=== PATIENT | male | born 1960 | race Caucasian/White ===

== ENCOUNTER → 2020-04-11 09:36 | Outpatient (CLI) | payer OTHER, SELFPAY ==
--- NOTE | 2020-04-11 09:51 | XR_ITS ---
PROCEDURE: XR SHOULDER RT MIN 2V CLINICAL INDICATION: RT SHOULDER PAIN COMPARISON: No exams were available for comparison FINDINGS: There are mild osteoarthritic changes of the acromioclavicular joint. No fracture or dislocation. No lytic or blastic change. IMPRESSION: Mild osteoarthritis of the AC joint otherwise negative Dictated by: Alvaro Mcgraw MD 04/11/2020 14:30 Electronically signed by Alvaro Mcgraw MD in [place] 04/11/2020 14:30
== END ==
PROVIDERS: PCP Family Medicine; Visit Provider Family Medicine
DX: M25.511 Pain in right shoulder (principal)
CPT/HCPCS: 73030

== ENCOUNTER 2021-12-11 12:31 | Emergency (ER) | payer OTHER, SELFPAY ==
[2021-12-11 12:44] VITALS: BP 139/73; PULSE 78; RESP 19; TEMP 37; O2SAT 97; BMI 27.1
--- NOTE | 2021-12-11 12:57 | HMH.EDUTC ---
[facility] [place] Impression: Vertigo Sinusitis Qualifiers: Sinusitis location: unspecified location Chronicity: unspecified Qualified Code(s): J32.9 - Chronic sinusitis, unspecified Disposition: Home, Self-Care Condition on Discharge: Good Instructions: Ringing in the Ears, DI for Sinusitis, DI for Vertigo Additional Instructions: *Monitor Temp, Over the counter Motrin or Tylenol as directed/as needed Tylenol every 4 hours and Motrin every 6 hours (as long as your family doctor has told you that you can take it) for fever or pain. and straight to ER if unable to lower temp less than 101.0 after medication given *Warm salt water gargles may help to soothe the throat *Throat Lozenges *Warm fluids like tea with honey may help to soothe the throat *Sleep elevated *Humidifier/Vaporizer *Flonase 2 sprays in each nostril daily but be aware that it may take 2-3 days before you notice improvement Take medication as prescribed Follow up with ENT if you continue to have ringing in your ears for further evaluation Follow up IMMEDIATELY for new or worsening symptoms or no Noticeable improvement over the next 48-72 hours. 911 for difficulty breathing or swallowing Straight to the ER if any confusion, numbness or tingling in extremities or face any chest pain or signs of stroke as discussed Prescriptions: Meclizine HCl [Meclizine 25mg Tab] 25 mg PO Q8HP PRN #15 tab PRN Reason: Dizziness Transmission Status: Received by [facility] Amoxicillin/Potassium Clav [Augmentin 875-125 Tablet] 1 tab PO Q12H 10 Days #20 tab Transmission Status: Received by [facility] predniSONE [Deltasone 10mg tablet] 10 mg PO BID 3 Days #6 tab Transmission Status: Received by [facility] Fluticasone Propionate [Flonase 50mcg nasal spray 16gm] 1 spr NS DAILY #1 each Transmission Status: Received by [facility] Referrals: Li Moreland APRN [Primary Care Provider] - As needed Forms: Work/School Release Time of Disposition: 14:11 Medical Decision Making - Cleve Inquiry Pt receiving controlled substance: No [place] was queried for this patient: No Vital Signs: 12/11/21 12:44 12/11/21 13:51 Temperature 98.6 F 98.6 F Temperature Source Oral Pulse Rate 78 Pulse Rate [Left] 78 Respiratory Rate 19 19 Blood Pressure 139/73 Blood Pressure [Right Arm] 139/73 Blood Pressure Mean [Right Arm] 95 02 Sat by Pulse Oximetry 97 Orders (Tests/Meds): ED MEDICATIONS Discontinued Medications Generic Name Dose Route Start Last Admin Trade Name Mariya PRN Reason Stop Dose Admin Meclizine HCl 12.5 mg 12/11/21 13:20 12/11/21 13:25 Meclizine 12.5mg Tablet PO 12/11/21 13:21 12.5 mg ONCE ONE Administration Medical Decision Narrative: Patient states he was at work earlier and had a bout of dizziness earlier at work and had some ringing in his ears States that he has been having sinus pressure on and off for close to a month Denies numbness or tingling in his extremities Discussed with patient about transfer to the ED for further work up and patient declined transfer States that he is feeling better now and didnt want to go over there Patient educated on risks even and still declined transfer Patient states that dizziness improved after medication States that he is not feeling as dizzy now after wax cleared from ear and medication [facility] [place] - General Stated complaint: dizziness, weakness Time Seen by Provider: 12/11/21 12:57 Mode of Arrival: Wheelchair Source of Information: Patient Limitations: No Limitations Description of Symptoms (Recalled from Triage Doc. by RN): pt c/o dizziness, lightheaded, weakness and ringing in ears since yesterday. HEENT Symptoms (Recalled from RN notes): Yes Resp Symptoms (Recalled from RN notes): No Skin Symptoms (Recalled from RN notes): No MS Symptoms (Recalled from RN notes): No Functional Status (Recalled from RN notes
[2021-12-11 13:51] VITALS: BP 139/73; PULSE 78; RESP 19; TEMP 37
== END 2021-12-11 14:17 | disposition home or self-care (01) ==
PROVIDERS: Emergency Provider Nurse Practitioner; PCP Nurse Practitioner
DX: J32.9 Chronic sinusitis, unspecified (principal); H92.03 Otalgia, bilateral; R42 Dizziness and giddiness
CPT/HCPCS: 99202; G0463

== ENCOUNTER → 2023-05-22 11:04 | Outpatient (CLI) | payer OTHER, SELFPAY ==
--- NOTE | 2023-05-22 11:14 | XR_ITS ---
FINAL REPORT CLINICAL HISTORY: LEFT ANKLE SWELLING... LEFT LEG PAIN FINDINGS: AP, oblique, and lateral views of the left ankle were obtained. There is no prior exam for comparison. There is no fracture or dislocation. The ankle mortise is intact. There is diffuse soft tissue edema. IMPRESSION: No acute osseous abnormality of the left ankle. Reviewed, Interpreted and Dictated by Pam Peterson MD Transcribed by Robert Drake Authenticated and [facility]
== END ==
LOC: RAD 11:08
PROVIDERS: PCP Internal Medicine; Visit Provider Internal Medicine
DX: M79.605 Pain in left leg (principal); M25.472 Effusion, left ankle
CPT/HCPCS: 73610